=== PATIENT | male | born 1940 | race African-American/Black ===

== ENCOUNTER 2018-09-24 00:09 | Emergency (ER) | payer MEDICARE ==
[~2018-09-24] VITALS: Ht 180.3 cm; Wt 88.6 kg
[~2018-09-24 00:09] MED LIST: ALBUTEROL S2.5 MG/.5 IN; CIPROFLOXACN500 MG PO
[2018-09-24] MEDS ORDERED: BENAZEPRIL40 M1 PO (00:27)
[2018-09-24] MEDS ORDERED: AMLODIPINE BESYL5 MG PO (00:27)
[2018-09-24] MEDS ORDERED: ZOCOR20 M1 PO (00:27)
[2018-09-24 05:58] VITALS: BP 129/80
[2018-09-24] MEDS ORDERED: ASPIRIN325 MG PO (09:23)
[2018-09-24] MEDS ORDERED: SYMBICORT 80-4.5MCG IN (09:24)
[2018-09-24] MEDS ORDERED: DELTASONE20 MG PO (13:20)
== END 2018-09-24 05:58 | disposition home or self-care (01) ==
LOC: ED 00:09
DX: T78.3XXA Angioneurotic edema, initial encounter (principal); I10 Essential (primary) hypertension; J45.909 Unspecified asthma, uncomplicated; M19.90 Unspecified osteoarthritis, unspecified site

== ENCOUNTER 2018-09-24 09:11 | Emergency (ER) | payer MEDICARE ==
[~2018-09-24] VITALS: Ht 180.3 cm; Wt 100.0 kg
[~2018-09-24 09:11] MED LIST changes: +AMLODIPINE BESYL5 MG PO; +BENAZEPRIL40 M1 PO; +ZOCOR20 M1 PO
[2018-09-24] MEDS ORDERED: ASPIRIN325 MG PO (09:23)
[2018-09-24] MEDS ORDERED: SYMBICORT 80-4.5MCG IN (09:24)
[2018-09-24] MEDS ORDERED: DELTASONE20 MG PO (13:20)
[2018-09-24 13:24] VITALS: BP 138/67
== END 2018-09-24 13:31 | disposition home or self-care (01) ==
LOC: ED 09:11
DX: T78.3XXA Angioneurotic edema, initial encounter (principal); I10 Essential (primary) hypertension; J45.909 Unspecified asthma, uncomplicated; M19.90 Unspecified osteoarthritis, unspecified site

== ENCOUNTER 2019-11-29 | Emergency (ER) | payer MEDICARE ==
[~2019-11-29] MED LIST changes: +ASPIRIN325 MG PO; +DELTASONE20 MG PO; +SYMBICORT 80-4.5MCG IN
== END 2019-11-29 23:25 | disposition home or self-care (01) ==
DX: S50.02XA Contusion of left elbow, initial encounter (principal); I10 Essential (primary) hypertension; W01.0XXA Fall on same level from slipping, tripping and stumbling without subsequent striking against object, initial encounter; Y93.89 Activity, other specified; Y92.89 Other specified places as the place of occurrence of the external cause

== ENCOUNTER 2021-03-22 21:48 | Inpatient (IN) | payer MEDICARE ==
[~2021-03-22] VITALS: Ht 180.3 cm; Wt 98.0 kg
[2021-03-22 22:41] LABS: HEMATOCRIT 37.8 % (39.0-50.0); HEMOGLOBIN 12.2 g/dl (14.0-18.0); IMMATURE GRANULOCYTES 0.7 % (0.0-5.0); MEAN CORPUSCULAR HGB 29.1 pG CALC (26.0-32.0); MEAN CORPUSCULAR HGB CONC 32.3 g/dL CAL (32.0-36.0); NEUT# 8.7 thou/uL (1.82-7.42); RED BLOOD COUNT 4.19 mill/uL (4.70-6.10); RED CELL DISTRI WIDTH 12.2 % (11.5-15.5)
[2021-03-22 22:45] LABS: MEAN CELL VOLUME 90.2 fL CALC (80.0-100.0)
[2021-03-22 22:52] LABS: ALBUMIN 3.6 g/dL (3.2-5.0); ANION GAP 14 (6-22 (CALC)); BILIRUBIN, TOTAL 0.7 mg/dL (0.0-1.4); BUN 14 mg/dL (8-23); BUN/CREATININE RATIO 15 (12-20 (CALC)); CARBON DIOXIDE 24 mmol/l (22-30); CHLORIDE 99 mmol/l (95-108); CREATININE 0.9 mg/dL (0.7-1.3); GFR > 60 ML/MIN (>=60 (CALC)); GFR FOR AFR.AMER. > 60 ML/MIN (>=60 (CALC)); POTASSIUM 3.8 mmol/l (3.5-5.1); SODIUM 133 mmol/l (137-146); TOTAL PROTEIN 7.7 g/dL (6.3-8.2)
[2021-03-22 22:52] LABS: URINE BLOOD DIPSTICK TRACE-INTACT (NEGATIVE); URINE COLOR YELLOW; URINE GLUCOSE - DIPSTICK NEGATIVE (NEGATIVE); URINE KETONE NEGATIVE (NEGATIVE); URINE PH 5.5 (4.5-8.0); URINE PROTEIN - DIPSTICK TRACE mg/dL (NEG-TRACE); URINE SPECIFIC GRAVITY 1.025
[2021-03-22 22:53] LABS: ALKALINE PHOSPHATASE 114 u/l (38-126); SGOT/AST 57 u/l (19-48)
[2021-03-22 22:53] LABS: URINE BILIRUBIN - DIPSTICK SMALL (NEGATIVE)
[2021-03-22 22:54] LABS: URINE LEUK ESTERASE SMALL (NEGATIVE); URINE NITRITE - DIPSTICK POSITIVE (Negative)
[2021-03-22 22:59] LABS: URINE BACTERIA FEW hpf; URINE SQUAMOUS EPITHELIAL CELL FEW EPI/hpf (0-FEW)
[2021-03-22 23:04] LABS: MYOGLOBIN 49 ng/mL (0 - 121)
[2021-03-23 00:50] VITALS: BP 158/90
[2021-03-23 04:00] VITALS: BP 127/71
[2021-03-23 06:00] LABS: INTERNATIONAL NORMALIZED RATIO 1.1 RATIO (0.7-1.3); PROTHROMBIN TIME 11.4 SECONDS (9.0-12.5)
[2021-03-23 07:38] VITALS: BP 156/76
[2021-03-23 11:27] VITALS: BP 131/80
[2021-03-23 14:55] VITALS: BP 146/80
[2021-03-23 15:52] LABS: CALCULATED LDLCHOLESTEROL 44 mg/dL (62-129 (CALC)); HDL CHOLESTEROL 10 mg/dL (>=40); TOTAL TRIGLYCERIDES 119 mg/dl (30-149); VLDL CHOLESTROL 24 mg/dl (0-38 (CALC))
[2021-03-23 15:54] LABS: CHOLESTEROL HDL RATIO 7.8 (<4.4 (CALC)); TOTAL CHOLESTEROL 78 mg/dl (0-199)
[2021-03-23 18:53] VITALS: BP 146/79
[2021-03-24] VITALS: BP 131/86
[2021-03-24 04:11] LABS: HEMATOCRIT 33.8 % (39.0-50.0); HEMOGLOBIN 10.7 g/dl (14.0-18.0); MEAN CELL VOLUME 92.3 fL CALC (80.0-100.0); MEAN CORPUSCULAR HGB 29.2 pG CALC (26.0-32.0); MEAN CORPUSCULAR HGB CONC 31.7 g/dL CAL (32.0-36.0); RED BLOOD COUNT 3.66 mill/uL (4.70-6.10); RED CELL DISTRI WIDTH 12.8 % (11.5-15.5)
[2021-03-24 04:16] VITALS: BP 160/82
[2021-03-24 04:23] LABS: ANION GAP 12 (6-22 (CALC)); BUN 13 mg/dL (8-23); BUN/CREATININE RATIO 17 (12-20 (CALC)); CARBON DIOXIDE 25 mmol/l (22-30); CHLORIDE 103 mmol/l (95-108); CREATININE 0.7 mg/dL (0.7-1.3); GFR > 60 ML/MIN (>=60 (CALC)); GFR FOR AFR.AMER. > 60 ML/MIN (>=60 (CALC)); MAGNESIUM 1.9 mg/dL (1.6-2.3); POTASSIUM 4.5 mmol/l (3.5-5.1); SODIUM 135 mmol/l (137-146)
[2021-03-24 07:20] VITALS: BP 133/59
[2021-03-24 11:48] VITALS: BP 130/72
[2021-03-24 17:13] VITALS: BP 127/72
[2021-03-24 19:00] VITALS: BP 124/73
[2021-03-25 05:15] LABS: HEMATOCRIT 34.6 % (39.0-50.0); MEAN CELL VOLUME 92.3 fL CALC (80.0-100.0); MEAN CORPUSCULAR HGB 29.3 pG CALC (26.0-32.0); MEAN CORPUSCULAR HGB CONC 31.8 g/dL CAL (32.0-36.0); RED BLOOD COUNT 3.75 mill/uL (4.70-6.10); RED CELL DISTRI WIDTH 12.9 % (11.5-15.5)
[2021-03-25 05:27] LABS: ANION GAP 13 (6-22 (CALC)); BUN 18 mg/dL (8-23); BUN/CREATININE RATIO 23 (12-20 (CALC)); CARBON DIOXIDE 26 mmol/l (22-30); CHLORIDE 99 mmol/l (95-108); CREATININE 0.8 mg/dL (0.7-1.3); GFR > 60 ML/MIN (>=60 (CALC)); GFR FOR AFR.AMER. > 60 ML/MIN (>=60 (CALC)); MAGNESIUM 2.2 mg/dL (1.6-2.3); POTASSIUM 4.4 mmol/l (3.5-5.1); SODIUM 134 mmol/l (137-146)
[2021-03-25 07:53] VITALS: BP 151/74
[2021-03-25 11:04] VITALS: BP 136/74
[2021-03-25 15:05] VITALS: BP 134/79
[2021-03-25 19:00] VITALS: BP 143/70
[2021-03-26] VITALS: BP 141/80
[2021-03-26 04:00] VITALS: BP 146/67
[2021-03-26 05:42] LABS: HEMATOCRIT 31.4 % (39.0-50.0); MEAN CELL VOLUME 91.5 fL CALC (80.0-100.0); MEAN CORPUSCULAR HGB 29.2 pG CALC (26.0-32.0); MEAN CORPUSCULAR HGB CONC 31.8 g/dL CAL (32.0-36.0); RED BLOOD COUNT 3.43 mill/uL (4.70-6.10); RED CELL DISTRI WIDTH 13.2 % (11.5-15.5)
[2021-03-26 06:23] LABS: ANION GAP 14 (6-22 (CALC)); BUN 12 mg/dL (8-23); BUN/CREATININE RATIO 16 (12-20 (CALC)); CARBON DIOXIDE 26 mmol/l (22-30); CHLORIDE 100 mmol/l (95-108); CREATININE 0.7 mg/dL (0.7-1.3); GFR > 60 ML/MIN (>=60 (CALC)); GFR FOR AFR.AMER. > 60 ML/MIN (>=60 (CALC)); POTASSIUM 4.2 mmol/l (3.5-5.1); SODIUM 135 mmol/l (137-146)
[2021-03-26 07:30] VITALS: BP 152/73
[2021-03-26] MEDS ORDERED: CARDIZEM CD120 MG PO (09:40)
[2021-03-26] MEDS ORDERED: LIDOCAINE PATCH 55 % TD (09:41)
[2021-03-26] MEDS ORDERED: OMNICEF300 MG PO (09:42)
[2021-03-26] MEDS ORDERED: ZITHROMAX Z-PA250 MG PO (09:42)
[2021-03-26] MEDS ORDERED: ELIQUIS5 MG PO (09:43)
[2021-03-26] MEDS ORDERED: OXY1 (09:48)
[2021-03-26] MEDS ORDERED: ADLT ASA LOW81 MG PO (10:53)
[2021-03-26 11:33] VITALS: BP 137/72
== END 2021-03-26 13:17 | disposition home health service (06) | DRG 194 ==
LOC: ED 21:48 → ED-I 23:45 → ED 23:54 → MS2 23:55
PROVIDERS: Emergency Medicine; Nurse Practitioner; ADMIT Hospitalist; ATTEND Hospitalist
DX: J18.9 Pneumonia, unspecified organism (principal); N39.0 Urinary tract infection, site not specified; J44.0 Chronic obstructive pulmonary disease with (acute) lower respiratory infection; E87.1 Hypo-osmolality and hyponatremia; I48.91 Unspecified atrial fibrillation; I10 Essential (primary) hypertension; E78.5 Hyperlipidemia, unspecified; I25.10 Atherosclerotic heart disease of native coronary artery without angina pectoris; R73.9 Hyperglycemia, unspecified; B96.20 Unspecified Escherichia coli [E. coli] as the cause of diseases classified elsewhere; Z20.822 Contact with and (suspected) exposure to COVID-19
CPT/HCPCS: S0164

== ENCOUNTER 2021-06-26 15:00 | Emergency (ER) | payer MEDICARE ==
[~2021-06-26] VITALS: Ht 180.3 cm; Wt 86.0 kg
[~2021-06-26 15:00] MED LIST changes: +ADLT ASA LOW81 MG PO; +CARDIZEM CD120 MG PO; +ELIQUIS5 MG PO; +LIDOCAINE PATCH 55 % TD; +OMNICEF300 MG PO; +OXY1; +ZITHROMAX Z-PA250 MG PO
[2021-06-26] MEDS ORDERED: MOTRIN400 MG/TAB PO (15:37)
[2021-06-26] MEDS ORDERED: DECADRON4 M1 PO (15:37)
[2021-06-26] MEDS ORDERED: DILTIAZEM HYDR240 MG PO (16:00)
[2021-06-26] MEDS ORDERED: B-122500 MC1 SL (16:00)
[2021-06-26] MEDS ORDERED: VITAMIN D1.25 MG PO (16:01)
[2021-06-26] MEDS ORDERED: METHIMAZOLE5 MG PO (16:01)
[2021-06-26] MEDS ORDERED: AMLODIPINE BESY10 MG PO (16:02)
[2021-06-26 16:05] VITALS: BP 132/68
== END 2021-06-26 16:05 | disposition home or self-care (01) ==
LOC: ED 15:00
DX: M54.42 Lumbago with sciatica, left side (principal); I10 Essential (primary) hypertension; E78.5 Hyperlipidemia, unspecified; J45.909 Unspecified asthma, uncomplicated